=== PATIENT | male | born 1995 | race Caucasian/White ===

== ENCOUNTER 2022-05-17 10:58 | Emergency (ER) | payer BC, MEDICAID, OTHER ==
[~2022-05-17] VITALS: Ht 177.8 cm; Wt 79.5 kg
[~2022-05-17 10:58] MED LIST: NO HOME MEDS
[2022-05-17 11:19] VITALS: BP 131/78
== END 2022-05-17 12:38 | disposition home or self-care (01) ==
LOC: ER 10:58
DX: S43.52XA Sprain of left acromioclavicular joint, initial encounter (principal); S40.212A Abrasion of left shoulder, initial encounter; M25.512 Pain in left shoulder; V89.2XXA Person injured in unspecified motor-vehicle accident, traffic, initial encounter; Y93.89 Activity, other specified; Y92.89 Other specified places as the place of occurrence of the external cause; Y99.8 Other external cause status
CPT/HCPCS: 73030; 99283; A4565; A6258; A6449